=== PATIENT | female | born 1945 | race Caucasian/White ===

== ENCOUNTER 2022-01-01 15:15 | Inpatient (IN) | payer MEDICARE, SELFPAY ==
[2022-01-01 15:37] VITALS: BP 90/59; PULSE 60; RESP 16; TEMP 36.4; O2SAT 98; BMI 24.8
[2022-01-01] MEDS: oxyCODONE 5 MG Tablet PO (17:01)
[2022-01-01 21:40] VITALS: BP 128/49; PULSE 62; RESP 18; TEMP 36.8; O2SAT 96
[2022-01-01] MEDS: Enoxaparin 30 MG/0.3 ML Syringe SC (21:40)
[2022-01-01] MEDS: Acetaminophen 500 MG Tablet 1000 MG PO (21:40)
[2022-01-01] MEDS: Senna/Docusate Sodium 1 Tablet 2 TABLET PO (21:40)
[2022-01-01 21:51] VITALS: PULSE 65; O2SAT 96
[2022-01-01 23:04] VITALS: BP 117/46; PULSE 67; RESP 19; TEMP 37.2; O2SAT 94
[2022-01-02 05:04] VITALS: BP 125/52; PULSE 57; RESP 17; TEMP 37.2; O2SAT 97
[2022-01-02] MEDS: oxyCODONE 5 MG Tablet PO ×4 (05:08→21:13)
[2022-01-02] MEDS: Acetaminophen 500 MG Tablet 1000 MG PO ×3 (05:08→21:13)
[2022-01-02] MEDS: Levothyroxine 50 MCG Tablet PO (05:08)
[2022-01-02 05:38] LABS: Absolute Lymphocyte Count 1.42 X10^3/uL (0.83-4.51); Absolute Neutrophil Count 2.8 X10^3/uL (2.0-7.7); Basophil# 0.03 X10^3/uL; Basophil% 0.6 % (0-1); Eosinophil# 0.18 X10^3/uL; Eosinophils% 3.6 % (0-5); Hematocrit 36.9 % (37-47); Hemoglobin 12.1 g/dL (12.0-15.0); Lymphocyte # 1.42 X10^3/ul (0.83-4.51); Lymphocyte % 28.5 % (19-41); Mean Corp Hgb Conc 32.8 g/dL (32-36); Mean Corpuscular Hgb 31.9 pg (27.0-32.0); Mean Corpuscular Volume 97.4 fL (81-99); Mean Platelet Vol. 8.4 fl (6.2-12.0); Monocyte# 0.54 X10^3/uL; Monocyte% 10.8 % (0-10); NRBC Flagged by Analyzer 0 % (0-5); Neutrophil # 2.79 X10^3/uL (2.7-7.7); Neutrophil % 56.1 % (47-70); Platelet Count 398 K/mm3 (150-450); RBC Distribution Width CV 13.1 % (11.6-14.6); RBC Distribution Width SD 46.9 fl (35.1-43.9); Red Blood Count 3.79 M/mm3 (4.2-5.4)
[2022-01-02 06:20] LABS: ALB/GLOB Ratio 0.8 RATIO (0.9-2.4); AST(SGOT) 10 U/L (15-37); Alanine Aminotransfer ALT/SGPT 8 U/L (13-56); Albumin, Serum 2.6 g/dL (3.2-5.0); Alkaline Phosphatase 67 U/L (45-117); Anion Gap 6 (5-15); BUN 18 mg/dL (7-18); BUN/Creat Ratio 24.3 RATIO (10-20); Calcium,Total 8.7 mg/dL (8.5-10.1); Chloride 107 mmol/L (98-107); Creatinine, Serum 0.74 mg/dL (0.55-1.02); EST Glomerular Filtration Rate 81 mL/min (>60); Est Glom Filt Rate - Afr Amer 98 mL/min (>60); Estimated Creatinine Clearance 37.85 ml/min; Globulin 3.4 g/dL (2.2-4.2); Glucose 100 mg/dL (74-106); Phosphorus 3.2 mg/dL (2.5-4.9); Potassium 3.5 mmol/L (3.5-5.1); Sodium Level 143 mmol/L (136-145)
[2022-01-02 07:22] VITALS: BP 125/52; PULSE 57; RESP 17; TEMP 37.2; O2SAT 96
[2022-01-02] MEDS: Polyethylene Glycol 3350 17 GM PACKET PO (08:08)
[2022-01-02] MEDS: Senna/Docusate Sodium 1 Tablet 2 TABLET PO ×2 (08:09→21:13)
[2022-01-02] MEDS: Enoxaparin 30 MG/0.3 ML Syringe SC ×2 (08:10→21:13)
[2022-01-02 08:13] LABS: Vitamin D,25 Hydroxy 36.5 ng/mL
--- NOTE | 2022-01-02 08:37 | PCM.HP.STD ---
HPI - General General Date of Admission: 01/01/22 Date of Service: 01/02/22 Chief Complaint: Debility due to fall on 12/29/21 resulting in a burst fracture of L3. 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 She denied hitting her head. She fell back and landed on a step which broke her fall. She was transferred to [facility] in [place] for orthopedic evaluation of a L3 burst fracture with 6 mm of retropulsion with spinal stenosis and a probable epidural hematoma. While at [facility] she was seen in consult by Dr. Tsai from neurosurgery to determine if she could have an MRI and if the EDITORIAL PROJECT MANAGER shunt would need to be reprogrammed after the MRI. He determined the shunt was a Certas valve and she could have an MRI and the device would not need to be reprogrammed following the MRI. MRI of the lumbosacral spine showed moderate to severe comminuted burst fracture involving L3 with significant retropulsion, asymmetrically greater on the left, including slight extension into the left pedicle. There was associated moderate to severe spinal stenosis with mass-effect on the thecal sac and nerve roots at L2-L4. On 12/26 she was taken to the OR for L2-L4 posterior spinal fusion with L2-L4 laminectomy and L2, L3 and L4 vertebroplasty. Postoperatively she was prescribed a brace when out of bed and as needed for comfort. Hans was transferred to the acute inpt unit at [facility] on 12/14/21 for 3 hours of therapy daily to restore function/independence prior to returning home. Afebrile S vital signs are stable. Blood pressure is well controlled. Heart rate is ranged from 57-67. Maintaining appropriate oxygen saturation on RA Discussed with nursing - no problems that need addressed Reviewed the PT/OT notes Medication list reviewed. All paperwork sent to us from the previous hospital was reviewed. All lab from this AM was personally reviewed. The white blood cell count, hemoglobin and platelets are all within normal limits. CMP is remarkable for an elevated BUN/creatinine ratio at 24.3. Vitamin D level is normal at 36.5. Hans is complaining that her pain control could be better. She had a hard time sleeping last night due to pain.. [facility] Medical History (Updated 01/02/22 @ 19:[address] Drea Rojas DO) Fall Hypothyroidism Home Medications acetaminophen 500 mg tablet 1,000 mg PO Q8 pain 01/01/22 [History Last Taken Unknown] calcium carbonate 600 mg calcium (1,500 mg) tablet 600 mg PO DAILY Check with primary doctor 01/01/22 [History Last Taken Unknown] enoxaparin 30 mg/0.3 mL subcutaneous solution 30 mg subcut Q12H PRN Check with primary doctor 01/01/22 [History Last Taken Unknown] levothyroxine 50 mcg tablet (Synthroid) 50 mcg PO DAILY hypothyroid 01/01/22 [History Last Taken Unknown] ondansetron HCl 4 mg tablet 4 mg PO Q8H PRN nausea/vomiting 01/01/22 [History Last Taken Unknown] oxycodone 5 mg tablet 5 mg PO Q6H PRN pain 01/01/22 [History Last Taken Unknown] polyethylene glycol 3350 17 gram oral powder packet (Miralax) 17 g PO DAILY bowel mobility 01/01/22 [History Last Taken Unknown] Allergy/AdvReac Type Severity Reaction Status Date / Time No Known Allergies Allergy Verified 01/01/22 15:43 Family History unable to obtain Surgical History (Updated 01/02/22 @ 18:[address] Drea Rojas DO) History of lumbar fusion EDITORIAL PROJECT MANAGER (ventriculoperitoneal) shunt status Social History household members: spouse Smoking Status: Never smoker ROS Constitutional Constitutional: Denies anorexia, change in weight, chills, fatigue, fever(s), night sweats or weakness Eyes Eyes: Denies blurry vision, change in vision, eye pain or loss of vision ENT HEENT: Reports other Details: She is complaining of dry mouth ; Denies abnormal hearing, dysphagia, headache(s), hearing loss, nasal congestion or sore throat Cardiovascular Cardiovascular: Denies chest pain, dyspnea on exertion, edema, lightheadedness, orthopnea, palpitations, paroxysmal nocturnal dyspnea or syncope Respiratory/Chest Respiratory/Chest: Denies cough, dyspnea, shortness of breath at rest, shortness of breath with exertion or wheezing Gastrointestinal Gastrointestinal: Reports constipation and other Details: She is only able to urinate a small amount and bladder scans show she is retaining urine ; Denies abdominal pain, diarrhea, dyspepsia, hematemesis, hematochezia, nausea or vomiting Genitourinary Genitourinary: Reports urinary hesitancy and other Details: urine retention ; Denies dysuria, hematuria, nocturia, urinary frequency, urinary incontinence or urinary urgency Musculoskeletal Musculoskeletal: Reports other Details: back pain localized to the low back. She denies pain or numbness in the buttocks ; Denies back pain, joint pain, joint swelling, muscle cramps, neck pain, numbness, radiating pain into limb or tingling Neurologic Neurologic: Denies confusion, disequilibrium, dizziness, focal weakness, frequent falls, headache(s), paresthesias, seizures, tingling, tremor(s) or vertigo Psychiatric Psychiatric: Denies anxiety, depression, homicidal ideation or suicidal ideation Endocrine Endocrinology: Denies change in body appearance, polydipsia or polyuria Hematologic/Lymphatic Hematologic/Lymphatic: Denies easy bleeding, easy bruising or lymphadenopathy Allergic/Immunologic Allergic/Immunologic: Denies rhinitis, eczemia or asthma Vital Signs Vital Signs Vital Signs: 01/01/22 15:37 01/01/22 21:40 01/01/22 21:44 Temperature 97.5 F L 98.3 F Temperature Source Temporal Oral Pulse Rate 60 62 Pulse Strength Normal (2+) Respiratory Rate 16 18 Respiratory Effort Respiratory Depth Respiratory Pattern Blood Pressure 90/59 L 128/49 H Blood Pressure Mean 69 75 Blood Pressure Source Monitor Monitor Blood Pressure Position Sitting Semi-Fowlers Blood Pressure Location Right Arm Right Arm Pulse Ox 98 96 Oxygen Delivery Method Room Air Room Air 01/01/22 21:51 01/01/22 23:04 01/02/22 05:04 Temperature 99.0 F 98.9 F Temperature Source Temporal Temporal Pulse Rate 65 67 57 L Pulse Strength Respiratory Rate 19 H 17 Respiratory Effort Normal Non-Labored Respiratory Depth Normal Respiratory Pattern Normal Blood Pressure 117/46 L 125/52 H Blood Pressure Mean 69 76 Blood Pressure Source Blood Pressure Position Blood Pressure Location Pulse Ox 96 94 97 Oxygen Delivery Method Room Air Room Air Room Air 01/02/22 07:22 Temperature 98.9 F Temperature Source Temporal Pulse Rate 57 L Pulse Strength Respiratory Rate 17 Respiratory Effort Respiratory Depth Respiratory Pattern Blood Pressure 125/52 H Blood Pressure Mean 76 Blood Pressure Source Monitor Blood Pressure Position Semi-Fowlers Blood Pressure Location Left Arm Pulse Ox 96 Oxygen Delivery Method Room Air Weight Weight: 136 lb Body Mass Index (BMI) 24.8 Physical Exam Const alert, oriented x3, healthy appearing and well nourished Constitutional Narrative: Appears to be in pain and is a little restless in bed and having trouble getting comfortable. She is pleasant and making good eye contact when she speaks with me General Appearance: cooperative, well kempt and well developed HEENT normocephalic and head/scalp atraumatic HEENT Narrative: Mucous membranes are dry. Face and Sinus: normal facial exam Eyes PERRL, EOMs intact bilaterally, conjunctivae normal, no scleral icterus and normal visual may by confrontation Neck no lymphadenopathy, supple, no JVD and no carotid bruits Chest inspection of chest normal Resp normal respiratory effort, normal air movement, no use of accessory muscles and clear to auscultation bilaterally Resp Narrative: No conversational dyspnea and she is not tachypneic. Effort and Inspection: able to speak in complete sentences and symmetric chest movement Cardio regular rate, regular rhythm, S1 normal heart sound, S2 normal heart sound, no murmurs, no rub and no gallops Cardio Narrative: No ectopy GI normal to inspection, nondistended, normoactive bowel sounds, soft to palpation and non-distended GI Narrative: She was tender in the suprapubic area because the bladder is distended and she needs to be straight cath'd Back/Spine Back/Spine Narrative: The bandage is present over the incision and the bandage is dry without drainage. Will examine with the next dressing change. Extremity no calf tenderness and no pedal edema Extremity Narrative: Able to lift both legs off the bed and hold them off the bed with no drift for a count of 5. no foot drop. Good dorsiflexion and plantar flexion strength in both feet. Normal capillary refill. No loss of sensation to either LE. Peripheral Pulses: Yes pulses 2+ throughout Skin General Skin Exam: no breakdown Rashes: no rashes Wound Narrative: Incision in the low back is intact. Will examine with the bandage change in the AM. Hair: normal Neuro oriented x3, CN's II-XII intact bilaterally, moves all extremities, no focal motor deficits and no sensory deficits noted Psych mental status grossly normal, thought process normal, cooperative, affect normal, speech normal and activity/motor behavior normal Appearance: grossly normal, appropriate and well kempt Attitude: calm Activity / Motor Behavior: appropriate eye contact Mood & Affect: euthymic mood Results Lab / Micro Data Result Diagrams: 01/02/22 05:29 01/02/22 05:29 Labs: Laboratory Results - last 24 hr 01/02/22 05:29: WBC 5.0, RBC 3.79 L, Hgb 12.1, Hct 36.9 L, MCV 97.4, MCH 31.9, MCHC 32.8, RDW Std Deviation 46.9 H, RDW Coeff of Yayo 13.1, Plt Count 398, MPV 8.4, Immature Gran % (Auto) 0.400, Neut % (Auto) 56.1, Lymph % (Auto) 28.5, Terrell % (Auto) 10.8 H, Eos % (Auto) 3.6, Baso % (Auto) 0.6, Absolute Neuts (auto) 2.8, Absolute Lymphs (auto) 1.42, Nucleated RBC % 0 01/02/22 05:29: Sodium 143, Potassium 3.5, Chloride 107, Carbon Dioxide 30.0, Anion Gap 6, BUN 18, Creatinine 0.74, Estim Creat Clear Calc 37.85, Est GFR (MDRD) Af Amer 98, Est GFR (MDRD) Non-Af 81, BUN/Creatinine Ratio 24.3 H, Glucose 100, Calcium 8.7, Phosphorus 3.2, Magnesium 2.0, Total Bilirubin 0.50, AST 10 L, ALT 8 L, Alkaline Phosphatase 67, Total Protein 6.0 L, Albumin 2.6 L, Globulin 3.4, Albumin/Globulin Ratio 0.8 L 01/02/22 05:29: Vitamin D 25-Hydroxy 36.5 Assessment & Plan Assessment/Plan (1) Physical debility: (2) Fall: (3) Burst fracture of lumbar vertebra: (4) Central stenosis of spinal canal: (5) Spinal epidural hematoma: (6) EDITORIAL PROJECT MANAGER (ventriculoperitoneal) shunt status: (7) Urine retention: (8) Hypothyroidism: PLAN: Plan PLAN PT for gait stability OT for ADL's Analgesics as needed - change the Oxycodone to 5-10 mg Q4H PRN pain. The pain is localized to the low back/surgery site and she has no radicular pain at this time. Bowel protocol Fall precautions Assess for Anxiety/Depression GI prophylaxis - not necessary at this time. she has no epigastric pain or nausea and she has no hx of GERD or PUD. DVT prophylaxis with enoxaparin 30 mg SQ every 12 hours Follow up with orthopedic surgery and Dr. Knight following DC from Rehab AM lab including CMP, CBC, Mag and Phos-personally reviewed Check TSH and T4 in the a.m. Add vitamin D supplement to her current drug regimen as the vitamin D level is low normal but we are heading into winter. Will request Dr. Knight's records to see if the patient has had a bone mineral density test in the past. No bending, lifting or twisting. Biotene spray PRN dry mouth. Encouraged her to increase her fluid intake. Bladder scan Q 6 hours and straight cath if > 200 cc. UA now. Unit Exclusion This patient is an acute care inpatient being housed in the excluded unit because of capacity issues related to the disaster or emergency.: Yes Charges/Coding Visit Charges Inpatient E&M: 79874 Init Hosp L2
[2022-01-02] MEDS: Calcium (Elemental) 500 MG Tablet PO (09:15)
[2022-01-02 19:21] LABS: Mucous, Urine 0 SEEN /hpf (<or=2+); Red Blood Cells-Urine 0 SEEN /hpf (0-5); White Blood Cells 0 SEEN /hpf (0-5)
[2022-01-02 19:25] LABS: Color, Urine Yellow (Yellow); Glucose, Dipstick Normal (Normal); Ketone-Dipstick Negative (Negative); Leukocyte Esterase-Dipstick Negative /ul (Negative); Nitrite-Dipstick Negative (Negative); Occult Blood-Urine Negative /ul (Negative); Protein-Dipstick Negative (Negative); Specific Gravity, Urine 1.015 (1.002-1.030); Urine Bilirubin Dipstick Negative (Negative); Urine Clarity Clear (Clear); Urine Urobilinogen Normal (Normal)
--- NOTE | 2022-01-02 19:25 | REHABEVAL_ITS ---
Admission Information Primary Diagnosis:: Physical debility/pain secondary to recent fall resulting in a burst fracture of L3 with retropulsed fragments and an epidural hematoma causing moderate to severe spinal canal stenosis. She is status post laminectomy and fusion from L2-L4. Status Changes from Prescreening?: No changes Identified Actual Problem List:: Falls, Skin Intergrity, Pain, ALteration in Cmfrt, Bladder Incontinence (She is having urine retention), Bowel, Constipation, Alteration in Sleep, Mobility Impaired, Self Care Deficit, Fluid Change-Dehydration and Alteration-Leisure Activ. Potential Problem List:: DVT, Bleeding, Infection, UTI, Aspiration, Falls, Skin Integrity and Depression Risk of Complications DVT: LMWH and ROBBIE Hose Bleeding: Monitor Lab Values, Nursing to Teach Precautions for anti-coagulation therapy., Wound, if applicable, to be assessed every shift. and Stroke patients assessed for lethargy or change in status. Infection: Clinical Staff to Monitor for S/S of infection: and S/S of infection include fever, redness, warmth, etc. Urinary Tract Infection: Monitor for frequency, burning, discomfort, or incontinence. and Nursing will obtain urine sample for urinalysis and C&S when ordered. Aspiration: Clinical staff will monitor for coughing, drooling, congestion., Speech will evaluate swallowing and dsyphasia. and Nursing will monitor patient swallowing during meals. Falls: Patient will be evaluated for Fall Precautions and Patient will be placed on Fall Precautions as indicated per protocol. Skin Breakdown: Nursing will assess skin daily using assessment tool. and Nursing will place on Skin Breakdown Precautions as indicated. Pain: Clinical staff will assess patient's pain level per protocol., Medications will be given, if needed, and the pain level reassessed. and Other methods: Massage, distraction, decrease stimulus, etc. used PRN. Plan of Care Patient requires physician specializing in physical medicine and rehab oversight to provide close medical supervision of rehab issues including: Pain Management, Sleep Problems, Bowel and Bladder, Medical and co-morbidity Management, DVT prophylaxis, Rehabilitation Leadership and Coordination of treatment team Patient needs Physical Therapy: For a minimum of 1 hour and At least 5 out of 7 days Patient needs Physical Therapy to improve:: Mobility, Strengthening, Transfers, Stretching, ROM, Endurance, Stairs, Gait and Balance Patient needs Occupational Therapy: For a minimum of 1 hour and At least 5 out of 7 days Patient needs Occupational Therapy to improve ADL's incl.: Eating, Grooming, Bathing, Dressing, Toileting, Toilet transfers, Community Reintegration, Higher functioning activities, Household tasks, Adaptive Equipment, Splinting and Other activities as determined Patient requires 24/7 Rehabilitation Nursing for: Pain Issues, Identifying and preventing risk factors, Monitoring and reporting current medical conditions, Assisting with ambulation, transfer, and all ADL's, Teaching patients about disease process and medications, Family teaching, Providing safe environment, Bowel and Bladder Issues, Skin integrity and Medication Management Patient needs Solid Waste Manager/ Case Management for: Discharge Planning, Arranging Home Equipment or Services and Family Interventions Patient needs Dietary and Nutrition Services for: Adequate Nutrition, Nutritional Supplements and Nutritional Education Goals Patient will remain: free from falls and or injury at time of discharge. Patient will perform bed mobility at: MOD I level of assist. Patient will complete transfers from bed to chair at: MOD I level of assist. Patient will ambulate: - (300 feet with least restrictive assistive device for safe return to the household/community.) Patient will complete upper body dressing at: MOD I level of assist. Patient will complete lower body dressing at: MOD I level of assist. (With appropriate assistive device) Patient will complete toileting at: MOD I level of assist. Patient will perform bathing at: - (Will demonstrate transfer on/off shower chair with use of grab bar and bathing tasks at a supervised level) Patient will complete grooming at: MOD I level of assist. Patient will complete home management skills at: MOD I level of assist. Patient will achieve: - (1 step at mod I with least restrictive device to safely enter her home.) Patient will have pain level of: of 3 or less Patient's skin will: remain intact Patient will receive: adequate nutrition. Discharge Planning Estimated Length of stay (days): 14 Anticipated D/C Destination: Home Was Preadmission Assessment Accurate?: Yes
[2022-01-02 20:17] LABS: Bacteria 1+ /hpf (None Seen); Squamous Epithelial Cells - UA 0-5 SEEN /hpf (5-10)
[2022-01-02 21:20] VITALS: BP 122/68; PULSE 70; RESP 17; TEMP 36.5; O2SAT 94
[2022-01-03] MEDS: oxyCODONE 5 MG Tablet PO ×4 (02:34→20:16)
[2022-01-03] MEDS: Acetaminophen 500 MG Tablet 1000 MG PO ×3 (05:22→21:44)
[2022-01-03] MEDS: Levothyroxine 50 MCG Tablet PO (05:23)
[2022-01-03 05:58] LABS: Thyroid Stim Hormone (TSH) 4.61 uIU/mL (0.358-3.74)
[2022-01-03 07:53] VITALS: BP 106/50; PULSE 62; RESP 18; TEMP 36.4; O2SAT 96
[2022-01-03] MEDS: Calcium (Elemental) 500 MG Tablet PO (07:56)
[2022-01-03] MEDS: Enoxaparin 30 MG/0.3 ML Syringe SC ×2 (07:56→21:45)
[2022-01-03] MEDS: Cholecalciferol (VIT D3) 25 MCG TABLET (1,000 UNITS) PO (07:57)
[2022-01-03] MEDS: Polyethylene Glycol 3350 17 GM PACKET PO (07:57)
[2022-01-03] MEDS: Senna/Docusate Sodium 1 Tablet 2 TABLET PO ×2 (07:57→21:45)
[2022-01-03] MEDS: Ondansetron ODT 4 MG Tablet PO (09:05)
--- NOTE | 2022-01-03 09:43 | NURSING ---
pt had a large amount of emesis while sitting in toilet.
[2022-01-03 09:55] VITALS: O2SAT 96
--- NOTE | 2022-01-03 10:58 | NURSING ---
Records request faxed to [facility] medical records.
--- NOTE | 2022-01-03 14:44 | NURSING ---
Contacted Dr. Knight's office requesting medical records fax number to request needed records. Waiting for call back.
--- NOTE | 2022-01-03 15:49 | NURSING ---
Received requested information from Dr. Knight's office.
--- NOTE | 2022-01-03 16:51 | PCM.PROGNOTE ---
Subjective Subjective Afebrile VSS Maintaining appropriate oxygen saturation on RA Oral intake - she had nausea and an emesis after breakfast.......she had 10 mg of Oxycodone this morning with breakfast. She received Zofran and the symptoms resolved. She ate 75 to 100% of her lunch. Bladder scan this month morning when she was unable to void was 424 cc and she was straight cathed for 480 mL. Discussed with nursing - no problems that need addressed Reviewed the PT/OT notes Medication list reviewed. She tells me that she slept better last night with the 10 mg of Oxycodone at HS. Denies headache, chest pain, shortness of breath, cough, dysuria, abdominal pain, lightheadedness. She was able to do all her therapy today and she feels tired. She has no nausea when she gets 5 mg of Oxycodone. UA from yesterday was personally reviewed and the patient had 0 WBCs and 0 RBCs on the UA. Urine retention is most likely neurogenic Objective Data Objective Data Vital Signs: Vital Signs Temp Pulse Resp BP Pulse Ox O2 Del Method 97.6 F L 62 18 106/50 L 96 Room Air 01/03/22 07:53 01/03/22 07:53 01/03/22 07:53 01/03/22 07:53 01/03/22 09:55 01/03/22 09:55 Oxygen Delivery Method Room Air Weight: 136 lb 0.015 oz Body Mass Index (BMI) 24.8 Intake & Output: Intake and Output for Last 24 Hours 01/01/22 01/02/22 01/03/22 23:59 23:59 23:59 Intake Total 660 / 660 Output Total 1200 / 1200 900 / 900 485 / 485 Balance -1200 / -1200 -240 / -240 -485 / -485 Lab / Micro Data Result Diagrams: 01/02/22 05:29 01/02/22 05:29 Labs: Laboratory Results - last 24 hr 01/02/22 05:29: TSH 4.61 H 01/02/22 19:00: Urine Color Yellow, Urine Clarity Clear, Urine pH 7.0, Ur Specific Hudson 1.015, Urine Protein Negative, Urine Glucose (UA) Normal, Urine Ketones Negative, Urine Occult Blood Negative, Urine Nitrite Negative, Urine Bilirubin Negative, Urine Urobilinogen Normal, Ur Leukocyte Esterase Negative, Urine RBC 0 SEEN, Urine WBC 0 SEEN, Ur Squamous Epith Cells 0-5 SEEN, Urine Bacteria 1+, Urine Mucus 0 SEEN Physical Exam Const alert, oriented x3 and no apparent distress Constitutional Narrative: She was napping when I entered her room. She aroused easily and she does not appear to be in any distress. She has good color in her face this afternoon. General Appearance: cooperative Resp normal respiratory effort and clear to auscultation bilaterally Cardio regular rate, regular rhythm, no murmurs and no gallops GI normal to inspection, nondistended, normoactive bowel sounds, soft to palpation and non-tender GI Narrative: No guarding with palpation. Extremity no calf tenderness General Extremity: Negative for edema Skin General Skin Exam: no breakdown Rashes: no rashes Assessment & Plan Assessment/Plan (1) Physical debility: (2) Fall: (3) Burst fracture of lumbar vertebra: (4) Central stenosis of spinal canal: (5) S/P laminectomy: (6) History of lumbar fusion: (7) Urine retention: (8) Back pain: PLAN: Plan 1. change the dosing of the Oxycodone to 10 mg at HS and 5 mg Q4H PRN pain > 3 2. Add Miacalcin to help with pain due to a vertebral fracture. 3. Continue therapy 4. If she continues to have urine retention when we get closer to the time of DC will need to teach her how to straight cath. 5. Encouraged her to increase her fluid intake and ordered accurate I&O. Charges/Coding Visit Charges Inpatient E&M: 13237 Subs Hosp L2
[2022-01-03 18:59] VITALS: BP 102/48; PULSE 57; RESP 18; TEMP 36.6; O2SAT 95
[2022-01-03] MEDS: Magnesium Hydroxide 30 ML UDC PO (20:16)
--- NOTE | 2022-01-03 22:59 | NURSING ---
Pt refused straight cath at this time. Pt denies any pressure or discomfort. Will continue to monitor. RN aware.
[2022-01-04] MEDS: oxyCODONE 5 MG Tablet PO ×3 (00:30→22:03)
[2022-01-04] MEDS: Levothyroxine 50 MCG Tablet PO (05:58)
[2022-01-04] MEDS: Acetaminophen 500 MG Tablet 1000 MG PO ×3 (05:58→21:58)
[2022-01-04] MEDS: Calcium (Elemental) 500 MG Tablet PO (07:59)
[2022-01-04 08:08] VITALS: BP 121/70; PULSE 63; RESP 16; TEMP 36.6; O2SAT 96
[2022-01-04] MEDS: Cholecalciferol (VIT D3) 25 MCG TABLET (1,000 UNITS) PO (09:26)
[2022-01-04] MEDS: Enoxaparin 30 MG/0.3 ML Syringe SC ×2 (09:27→21:57)
[2022-01-04] MEDS: Senna/Docusate Sodium 1 Tablet 2 TABLET PO ×2 (09:28→22:01)
[2022-01-04 22:00] VITALS: BP 115/49; PULSE 60; RESP 18; TEMP 36.6; O2SAT 98
[2022-01-05] MEDS: Acetaminophen 500 MG Tablet 1000 MG PO ×3 (05:10→21:41)
[2022-01-05] MEDS: Levothyroxine 50 MCG Tablet PO (05:10)
[2022-01-05] MEDS: oxyCODONE 5 MG Tablet PO ×4 (06:31→21:41)
[2022-01-05 07:30] VITALS: O2SAT 99
[2022-01-05] MEDS: Calcium (Elemental) 500 MG Tablet PO (07:57)
[2022-01-05 10:00] VITALS: BP 107/42; PULSE 61; RESP 16; TEMP 36.4; O2SAT 94
[2022-01-05] MEDS: Enoxaparin 30 MG/0.3 ML Syringe SC ×2 (10:36→21:41)
[2022-01-05] MEDS: Cholecalciferol (VIT D3) 25 MCG TABLET (1,000 UNITS) PO (10:37)
[2022-01-05] MEDS: Senna/Docusate Sodium 1 Tablet 2 TABLET PO ×2 (10:37→21:41)
[2022-01-05] MEDS: Polyethylene Glycol 3350 17 GM PACKET PO (10:37)
[2022-01-05 19:49] VITALS: BP 123/64; PULSE 67; RESP 18; TEMP 36.7; O2SAT 98
[2022-01-06] MEDS: Levothyroxine 50 MCG Tablet PO (05:25)
[2022-01-06] MEDS: Acetaminophen 500 MG Tablet 1000 MG PO ×3 (05:26→21:08)
[2022-01-06] MEDS: oxyCODONE 5 MG Tablet PO ×3 (05:26→18:37)
[2022-01-06 07:14] VITALS: BP 117/49; PULSE 56; RESP 16; TEMP 36.5; O2SAT 96
[2022-01-06 07:21] VITALS: O2SAT 90
[2022-01-06] MEDS: Polyethylene Glycol 3350 17 GM PACKET PO (07:44)
[2022-01-06] MEDS: Senna/Docusate Sodium 1 Tablet 2 TABLET PO (07:44)
[2022-01-06] MEDS: Enoxaparin 30 MG/0.3 ML Syringe SC ×2 (07:44→21:08)
[2022-01-06] MEDS: Calcium (Elemental) 500 MG Tablet PO (07:45)
[2022-01-06] MEDS: Cholecalciferol (VIT D3) 25 MCG TABLET (1,000 UNITS) PO (07:45)
--- NOTE | 2022-01-06 09:29 | PCM.PROGNOTE ---
Subjective Subjective Becky was seen on team rounds today. Afebrile VSS Maintaining appropriate oxygen saturation on RA Oral intake -I do not think that the oral intake is being accurately recorded. She has had good urine output. She is still needing to be straight cath'd. She is constipated and has not had a BM since 01/04. Discussed with nursing - no problems that need addressed Reviewed the PT/OT notes Medication list reviewed. She has been taking 10 mg of Oxycodone 3-4 times a day. she has not had any nausea since Thursday AM with the 10 mg dose. Becky denies headache, chest pain, shortness of breath, cough, sore throat, nausea, vomiting, abdominal pain, calf pain and lightheadedness. She is frustrated that she feels like she has to urinate and when she goes to the bathroom she cannot urinate. We are continuing to straight cath. Prior to this she had no urge to go. UA on 01/02 had no WBC's. She tells me that her pain is adequately controlled. She slept OK last night.....woke up a few times last night to try and go to the BR. Objective Data Objective Data Vital Signs: Vital Signs Temp Pulse Resp BP Pulse Ox O2 Del Method 97.7 F L 56 L 16 117/49 L 90 Room Air 01/06/22 07:14 01/06/22 07:14 01/06/22 07:14 01/06/22 07:14 01/06/22 07:21 01/06/22 07:21 Oxygen Delivery Method Room Air Weight: 136 lb 0.015 oz Body Mass Index (BMI) 24.8 Intake & Output: Intake and Output for Last 24 Hours 01/04/22 01/05/22 01/06/22 23:59 23:59 23:59 Intake Total 720 / 720 520 / 520 Output Total 1210 / 1860 1250 / 1250 300 / 300 Balance -490 / -1140 -730 / -730 -300 / -300 Lab / Micro Data Result Diagrams: 01/02/22 05:29 01/02/22 05:29 Physical Exam Const alert and oriented x3 Constitutional Narrative: Seems a little down today and is fearfula about not being able to urinate when she leaves rehab. she is tired of being poked. General Appearance: cooperative HEENT moist oral mucous membranes Resp normal respiratory effort, normal air movement and clear to auscultation bilaterally Cardio regular rate, regular rhythm, no murmurs and no gallops GI normal to inspection, nondistended, normoactive bowel sounds, soft to palpation and non-tender GI Narrative: Good BS's. No guarding with palpation. Extremity no calf tenderness General Extremity: Negative for edema Skin Wound Narrative: The Lumbar incision is intact with no dehiscence. There is no shun-incisional erythema and no DC. Assessment & Plan Assessment/Plan (1) Physical debility: (2) Fall: (3) Burst fracture of lumbar vertebra: (4) Central stenosis of spinal canal: (5) Spinal epidural hematoma: (6) S/P laminectomy: (7) History of lumbar fusion: (8) Urine retention: PLAN: This is most likely neurogenic however, she has been constipated and will get a KUB to rule out obstipation as a contributor to the retention. PLAN: Plan 1. Continue therapy. 2. Constipation is likely multifactorial.......due to immobility, narcotics and possibly this is also neurogenic in nature. She is taking both senna and Miralax daily. Charges/Coding Visit Charges Inpatient E&M: 94447 Subs Hosp L2
--- NOTE | 2022-01-06 09:48 | RAD_ITS ---
STUDY: X-RAY - ABDOMEN/PELVIS REASON FOR EXAM: Female, 76 years old. Constipation/abd pain TECHNIQUE: Single AP view of the abdomen / pelvis. COMPARISON: None. FINDINGS: A ventriculoperitoneal shunt tube is seen with the tip in the right lower quadrant. There is an abundance of fecal material throughout the colon. The visualized liver, spleen and kidneys are grossly normal in size and morphology. Normal soft tissue structures. The patient is status post tibiotalar screw and ruddy fixation at the L2-L3 and L3-L4 levels with the bone grafting. Prior vertebroplasty of the L2 vertebrae. RAD/Abdomen Single View IMPRESSION: Large amount of fecal material is seen throughout the colon. Status post fusion at the L2-L3 and L3-L4 levels with bone grafting. Electronically Signed: Jose D Hi MD at 12:30 EDT ,
[2022-01-06 10:44] LABS: Mucous, Urine 0 SEEN /hpf (<or=2+); Squamous Epithelial Cells - UA 0 SEEN /hpf (5-10)
[2022-01-06 10:46] LABS: Color, Urine Yellow (Yellow); Glucose, Dipstick Normal (Normal); Ketone-Dipstick Negative (Negative); Leukocyte Esterase-Dipstick 500 /ul (Negative); Nitrite-Dipstick Positive (Negative); Occult Blood-Urine 50 /ul (Negative); Protein-Dipstick 30 mg/dl (Negative); Specific Gravity, Urine 1.015 (1.002-1.030); Urine Bilirubin Dipstick Negative (Negative); Urine Clarity Turbid (Clear); Urine Urobilinogen Normal (Normal); Urine pH 6.5 (5.0 - 8.0)
[2022-01-06 10:52] LABS: Bacteria 3+ /hpf (None Seen); Red Blood Cells-Urine 0-5 SEEN /hpf (0-5); White Blood Cells >100 SEEN /hpf (0-5)
[2022-01-06] MEDS: Magnesium Hydroxide 30 ML UDC PO (10:59)
[2022-01-06] MEDS: Bisacodyl 5 MG Tablet 10 MG PO (13:06)
--- NOTE | 2022-01-06 13:44 | CASEMGMT ---
Social Work IDT met with patient, and son for Team meeting. Discussed patient's progress in PT/OT/SN. Educated to [employer] insurance with NRD 01/08 and continued stay is not guaranteed with each review. Pts goal is to return home with . However, is present from another hospital unit dealing with his own health issues. SW to ensure and pt are safe to care for each other at DC. Son works night time nanny. SW to order continued therapy or DME needs at DC. Will ReTeam. SW to continue to follow for DC planning. Yvonne Wyatt, ORTHOPEDIC ASSISTANT TECHNICAL SUPPORT SPECIALIST
[2022-01-06] MEDS: Bisacodyl 10 MG Suppository RC (16:28)
[2022-01-06 20:47] VITALS: BP 113/56; PULSE 58; RESP 16; TEMP 37.1; O2SAT 97
[2022-01-07] MEDS: oxyCODONE 5 MG Tablet PO ×3 (00:53→20:03)
[2022-01-07] MEDS: Levothyroxine 50 MCG Tablet PO (07:24)
[2022-01-07] MEDS: Acetaminophen 500 MG Tablet 1000 MG PO ×3 (07:24→21:01)
[2022-01-07] MEDS: Cholecalciferol (VIT D3) 25 MCG TABLET (1,000 UNITS) PO (07:55)
[2022-01-07] MEDS: Calcium (Elemental) 500 MG Tablet PO (07:55)
[2022-01-07] MEDS: Enoxaparin 30 MG/0.3 ML Syringe SC ×2 (07:55→21:01)
[2022-01-07] MEDS: Senna/Docusate Sodium 1 Tablet 2 TABLET PO ×2 (07:58→21:01)
[2022-01-07] MEDS: Polyethylene Glycol 3350 17 GM PACKET PO (07:58)
[2022-01-07 08:00] VITALS: BP 116/42; PULSE 61; RESP 18; TEMP 36.7; O2SAT 98
[2022-01-07 20:02] VITALS: BP 136/47; PULSE 60; RESP 16; TEMP 36.8; O2SAT 94
[2022-01-08] MEDS: oxyCODONE 5 MG Tablet PO ×3 (00:47→20:34)
[2022-01-08] MEDS: Levothyroxine 50 MCG Tablet PO (06:26)
[2022-01-08] MEDS: Acetaminophen 500 MG Tablet 1000 MG PO ×3 (06:26→20:36)
[2022-01-08 07:55] VITALS: BP 115/47; PULSE 58; RESP 16; TEMP 36.8; O2SAT 94
[2022-01-08] MEDS: Cholecalciferol (VIT D3) 25 MCG TABLET (1,000 UNITS) PO (07:55)
[2022-01-08] MEDS: Enoxaparin 30 MG/0.3 ML Syringe SC ×2 (07:55→20:36)
[2022-01-08] MEDS: Calcium (Elemental) 500 MG Tablet PO (07:55)
[2022-01-08] MEDS: Polyethylene Glycol 3350 17 GM PACKET PO (07:56)
[2022-01-08] MEDS: Senna/Docusate Sodium 1 Tablet 2 TABLET PO ×2 (07:56→20:35)
[2022-01-08 09:18] VITALS: O2SAT 95
[2022-01-08 10:00] VITALS: RESP 16; O2SAT 97
--- NOTE | 2022-01-08 14:49 | CHAPLAIN ---
Type of Pastoral Visit _x__ Initial Visit ___ Follow-up Visit ___ On-call Visit ___ General Patient Visit ___ Spiritual Assessment ___ Family Conference ___ Bereavement ___ Rapid Response ___ Code Blue ___ Other (describe below) Pastoral Care Referral From _x__ Patient ___ Family ___ Nurse ___ Physician ___ Principal Research Economist ___ Plastic Extruding Machine Operator ___ Other (describe below) Sacrament/Intervention _x__ Active listening ___ Anointing ___ Advent ___ Bereavement ___ Communion ___ Nancy exploration ___ _x__ Life review _x__ Prayer ___ Reconciliation ___ Sacrament of Sick _x__ Supportive presence ___ Wedding ___ Other (describe below) Pastoral Comments patient states that recovery is coming slowly but admits that it is to be expected; pt talks about her new blended family after being ; pt has support from new and her children; 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
--- NOTE | 2022-01-08 15:03 | CASEMGMT ---
Social Work Insurance requesting further details on discharge plans. SW spoke with IDT. IDT recommending continued stay as pt is still needing assistance managing back brace, toilet hygiene and clothing management, Aga for LE ADLs, and CGA for ambulation. Pt is making progress and will continued stay, pt will continue to benefit. Pt must be independent to return home as son works night time nanny and has own health issues. Will Team Thursday and further details DC plans and setting date. SW to continue to follow. LOLA Leung
--- NOTE | 2022-01-08 15:47 | NURSING ---
Spoke with Maura in Dr. Adebayo Olivo's office (Orthopedics) asking when the sutures to the patient's back can be removed. She will send a message to Dr Olivo and call us with his response.
[2022-01-08 20:02] VITALS: BP 116/56; PULSE 63; RESP 16; TEMP 36.8; O2SAT 98
[2022-01-08 20:07] VITALS: O2SAT 98
--- NOTE | 2022-01-08 22:54 | NURSING ---
Pt c/o feeling pressure to void but unable to, bladder distended. Pt bladder scanned early, showed greater than 1000ml, straight cathed for 1300ml clear, yellow urine. Pt tolerated well, states she feels better now. Pt asking about medication to help with this problem, states that she does not want to straight cath herself, note left for Dr. Rojas to address in am. Will continue to monitor
[2022-01-09] MEDS: Levothyroxine 50 MCG Tablet PO (05:56)
[2022-01-09] MEDS: Acetaminophen 500 MG Tablet 1000 MG PO ×3 (05:56→21:08)
[2022-01-09] MEDS: oxyCODONE 5 MG Tablet PO ×3 (05:58→23:59)
[2022-01-09 08:28] VITALS: BP 123/51; PULSE 61; RESP 16; TEMP 36.7; O2SAT 96
[2022-01-09] MEDS: Senna/Docusate Sodium 1 Tablet 2 TABLET PO ×2 (09:23→21:08)
[2022-01-09] MEDS: Enoxaparin 30 MG/0.3 ML Syringe SC ×2 (09:23→21:08)
[2022-01-09] MEDS: Polyethylene Glycol 3350 17 GM PACKET PO (09:23)
[2022-01-09] MEDS: Calcium (Elemental) 500 MG Tablet PO (09:23)
[2022-01-09] MEDS: Cholecalciferol (VIT D3) 25 MCG TABLET (1,000 UNITS) PO (09:23)
[2022-01-09] MEDS: Magnesium Hydroxide 30 ML UDC PO (10:00)
--- NOTE | 2022-01-09 10:23 | PCM.PROGNOTE ---
Subjective Subjective Day 03/22 of cefadroxil for urinary tract infection Afebrile VSS Maintaining appropriate oxygen saturation on RA Oral intake is poor on nursing documentation however this may not be accurate. Her weight is up 4-1/2 ounces since admission to rehab. Discussed with nursing - no problems that need addressed Reviewed the PT/OT notes Still requiring voice cues to be able to do therapy exercises correctly. She is moving at a better pace with the FWW today and seems more alert although still requiring some VC's Medication list reviewed. Oxycodone was changed to 5 mg p.o. every 4 hours as needed pain greater than 4 yesterday for difficulty with memory and retaining what she has learned in therapy from 1 days to the next. Urine culture is + for E. coli and Klebsiella oxytoca. Both bacteria are sensitive to cefazolin, ceftriaxone, Fluoroquinolones, nitrofurantoin and Bactrim. Becky is very frustrated and depressed that she can not urinate. I have explained to her a # of times that this is neurogenic and due to the burst fracture and spinal stenosis. She wants a Medication that will make her urinate and I explained there is no such medication. Becky denies cephalgia, sore throat, cough, shortness of breath, palpitations, chest pain, nausea/vomiting, calf tenderness. She had a BM on the toilet today and was also able to urinate! She denies dysuria today. Objective Data Objective Data Vital Signs: Vital Signs Temp Pulse Resp BP Pulse Ox O2 Del Method 98.0 F 61 16 123/51 H 96 Room Air 01/09/22 08:28 01/09/22 08:28 01/09/22 08:28 01/09/22 08:28 01/09/22 08:28 01/09/22 08:28 Oxygen Delivery Method Room Air Weight: 140 lb 10.479 oz Body Mass Index (BMI) 24.8 Intake & Output: Intake and Output for Last 24 Hours 01/07/22 01/08/22 01/09/22 23:59 23:59 23:59 Intake Total 410 / 410 820 / 820 460 / 460 Output Total 1835 / 1835 2150 / 2150 Balance -1425 / -1425 -1330 / -1330 460 / 460 Lab / Micro Data Result Diagrams: 01/02/22 05:29 01/02/22 05:29 Micro: Microbiology 01/06/22 10:25 Urine, Catheterized Urine Culture - Final Escherichia coli Klebsiella oxytoca Physical Exam Narrative Seems a little more alert today and she is smiling at me again. Still sleeping a lot. Resp normal respiratory effort and clear to auscultation bilaterally Cardio Cardio Narrative: RRR, no gallop, no ectopy GI normal to inspection, nondistended, normoactive bowel sounds, soft to palpation and non-tender GI Narrative: No guarding with palpation Extremity no calf tenderness General Extremity: Negative for edema Skin General Skin Exam: no breakdown Rashes: no rashes Neuro CN's II-XII intact bilaterally and no focal motor deficits Assessment & Plan Assessment/Plan (1) Physical debility: PLAN: Continue therapy.. (2) Burst fracture of lumbar vertebra: (3) Central stenosis of spinal canal: (4) Spinal epidural hematoma: (5) S/P laminectomy: (6) History of lumbar fusion: (7) UTI (urinary tract infection), bacterial: PLAN: Duricef 1 g p.o. today and then start 500 mg p.o. twice daily for total of 7 days. (8) Neurogenic bladder: PLAN: She was able to urinate today for the first time and I hope this is a sign of the nerves working again after recent trauma to the lumbar spine from a Burst fracture related to a fall. will continue to monitor bladder scans every 6-8 hours. PLAN: Plan I suspect the memory difficulties the past few days are multifactorial and are due to medications and the UTI. Will continue to monitor mental status......if she is still needing voice cues Thursday will DC the Oxycodone and consider a trial of Tramadol. Creat clearance is only est at 37 and it is likely the Oxycodone was accumulating in her system and it will take a few days to wash out. Will change the Oxycodone to Q6H PRN today. Charges/Coding Visit Charges Inpatient E&M: 05642 Subs Hosp L2
[2022-01-09 10:50] VITALS: O2SAT 96
[2022-01-09] MEDS: Cefadroxil 500 MG CAPSULE 1000 MG PO (12:46)
[2022-01-09] MEDS: Cefadroxil 500 MG CAPSULE PO (21:09)
[2022-01-09 22:00] VITALS: BP 161/54; PULSE 65; RESP 18; TEMP 37.1; O2SAT 100; O2SAT 98
[2022-01-10] MEDS: Acetaminophen 500 MG Tablet 1000 MG PO ×3 (05:45→22:08)
[2022-01-10] MEDS: Levothyroxine 50 MCG Tablet PO (05:45)
[2022-01-10 07:30] VITALS: BP 133/58; PULSE 64; RESP 16; TEMP 36.7; O2SAT 94
[2022-01-10] MEDS: Cefadroxil 500 MG CAPSULE PO ×2 (07:47→22:09)
[2022-01-10] MEDS: Enoxaparin 30 MG/0.3 ML Syringe SC ×2 (07:47→22:09)
[2022-01-10] MEDS: Calcium (Elemental) 500 MG Tablet PO (07:48)
[2022-01-10] MEDS: Cholecalciferol (VIT D3) 25 MCG TABLET (1,000 UNITS) PO (07:48)
[2022-01-10] MEDS: Senna/Docusate Sodium 1 Tablet 2 TABLET PO (07:48)
[2022-01-10] MEDS: Polyethylene Glycol 3350 17 GM PACKET PO (07:48)
[2022-01-10] MEDS: oxyCODONE 5 MG Tablet PO ×2 (09:52→22:07)
--- NOTE | 2022-01-10 10:06 | NURSING ---
Dr Olivo's office called regarding removal of sutures post-operatively. MD requires AP/lateral lumbar xray at 3 weeks post-operatively prior to suture removal. If patient is still in RU at this time--please send images to [email or web address] with subject line including patient's name, , and Dr Olivo's name. Office will then notify our staff after reviewing images in sutures can be removed.
--- NOTE | 2022-01-10 14:08 | NURSING ---
bladder scanned for >508cc. pt denies any urge to urinate since straight cath this AM. straight cath performed with 15fr kit using aseptic technique. 550cc clear/yellow urine obtained.
[2022-01-10 19:20] VITALS: BP 120/48; PULSE 70; RESP 16; TEMP 36.9; O2SAT 96
--- NOTE | 2022-01-10 22:13 | NURSING ---
PT STRAIGHT CATHED FOR 250 ML URINE VIA STERILE TECHNIQUE. PT TOLERATES PROCEDURE WELL.
[2022-01-11] MEDS: Levothyroxine 50 MCG Tablet PO (06:55)
[2022-01-11] MEDS: oxyCODONE 5 MG Tablet PO ×2 (06:55→21:29)
[2022-01-11] MEDS: Acetaminophen 500 MG Tablet 1000 MG PO ×3 (06:55→21:29)
[2022-01-11 08:00] VITALS: BP 91/45; PULSE 61; RESP 16; TEMP 36.9; O2SAT 95
[2022-01-11] MEDS: Polyethylene Glycol 3350 17 GM PACKET PO (08:35)
[2022-01-11] MEDS: Senna/Docusate Sodium 1 Tablet 2 TABLET PO ×2 (08:35→21:29)
[2022-01-11] MEDS: Cholecalciferol (VIT D3) 25 MCG TABLET (1,000 UNITS) PO (08:35)
[2022-01-11] MEDS: Enoxaparin 30 MG/0.3 ML Syringe SC ×2 (08:35→21:30)
[2022-01-11] MEDS: Cefadroxil 500 MG CAPSULE PO ×2 (08:36→21:29)
[2022-01-11] MEDS: Calcium (Elemental) 500 MG Tablet PO (08:36)
[2022-01-11 20:40] VITALS: O2SAT 98
[2022-01-11 20:49] VITALS: BP 119/53; PULSE 57; RESP 16; TEMP 36.9; O2SAT 98
[2022-01-12] MEDS: oxyCODONE 5 MG Tablet PO ×3 (03:29→20:18)
[2022-01-12] MEDS: Levothyroxine 50 MCG Tablet PO (04:51)
[2022-01-12] MEDS: Acetaminophen 500 MG Tablet 1000 MG PO ×3 (04:51→20:18)
[2022-01-12 07:26] VITALS: BP 143/47; PULSE 66; RESP 18; TEMP 36.2; O2SAT 98
[2022-01-12] MEDS: Polyethylene Glycol 3350 17 GM PACKET PO (08:33)
[2022-01-12] MEDS: Cefadroxil 500 MG CAPSULE PO ×2 (08:33→20:18)
[2022-01-12] MEDS: Enoxaparin 30 MG/0.3 ML Syringe SC ×2 (08:33→20:18)
[2022-01-12] MEDS: Cholecalciferol (VIT D3) 25 MCG TABLET (1,000 UNITS) PO (08:33)
[2022-01-12] MEDS: Calcium (Elemental) 500 MG Tablet PO (08:33)
[2022-01-12] MEDS: Senna/Docusate Sodium 1 Tablet 2 TABLET PO ×2 (08:33→20:18)
--- NOTE | 2022-01-12 10:52 | PCM.PROGNOTE ---
Subjective Subjective Day #4/7 of cefadroxil for urinary tract infection. Afebrile VSS Maintaining appropriate oxygen saturation on RA Oral intake is adequate Discussed with nursing - She has been urinating on her own more. Still requiring straight cath for high residuals. Refuses to try to straight cath herself and tells nursing she will not do it at home. Reviewed the PT/OT notes - Requiring less VC's but on Thursday she was still only able to remember 1/3 spinal precautions. Medication list reviewed. She took Oxycodone only twice yesterday and twice on the . She has had 2 already today. Becky is perseverating on requiring to be catheterized at [place]. She would not feel comfortable having her doing this and she has no daughters. she also admits to having a lot of problems with memory and she has required a lot of VC's with therapy and can not remember her spinal precautions. She is agreeable to seeing ST for an evaluation. She has a PATIENT CASE COORDINATOR shunt for NPH and it may be that the cognitive dysfunction is due to memory loss prior to placement of the shunt. Becky tells me that her pain is much better than it was at admission. She denies chest pain, lightheadedness, palpitations, shortness of breath, nausea/vomiting/abdominal pain, suprapubic pain, dysuria and calf tenderness. Objective Data Objective Data Vital Signs: Vital Signs Temp Pulse Resp BP Pulse Ox O2 Del Method 97.1 F L 66 18 143/47 H 98 Room Air 01/12/22 07:26 01/12/22 07:26 01/12/22 07:26 01/12/22 07:26 01/12/22 07:26 01/12/22 07:26 Oxygen Delivery Method Room Air Weight: 140 lb 10.479 oz Body Mass Index (BMI) 24.8 Intake & Output: Intake and Output for Last 24 Hours 01/10/22 01/11/22 01/12/22 23:59 23:59 23:59 Intake Total 1280 / 1280 1200 / 1200 100 / 100 Output Total 1310 / 1310 300 / 300 830 / 830 Balance -30 / -30 900 / 900 -730 / -730 Lab / Micro Data Result Diagrams: 01/13/22 04:13 01/13/22 04:13 Micro: Microbiology 01/06/22 10:25 Urine, Catheterized Urine Culture - Final Escherichia coli Klebsiella oxytoca Physical Exam Const alert and oriented x3 Constitutional Narrative: she is smiling and pleasant today. she is making good eye contact when she converses with me. General Appearance: cooperative HEENT moist oral mucous membranes Resp clear to auscultation bilaterally Cardio regular rate and regular rhythm GI normal to inspection, nondistended, normoactive bowel sounds and soft to palpation Extremity no calf tenderness General Extremity: Negative for edema Skin General Skin Exam: no breakdown Rashes: no rashes Neuro CN's II-XII intact bilaterally Assessment & Plan Assessment/Plan (1) Physical debility: (2) Fall: (3) Burst fracture of lumbar vertebra: (4) Spinal epidural hematoma: (5) S/P laminectomy: (6) History of lumbar fusion: (7) Urine retention: (8) UTI (urinary tract infection), bacterial: (9) Memory difficulties: PLAN: Plan 1. Continue therapy 2. Explained again to her that there is no medication that is going to increase her ability to drain her bladder but, that it is an excellent sign that she is now able to produce some urine and I am hopeful she will regain full function. We discussed the options for going home if she is still requiring straight cath at DC. #1. straight cath herself or teach her or another family member how to do this. #2. Insert a [place] catheter and have her follow up with Dr. Snow for a voiding trial post DC. 3. Continue cefadroxil for 7 days and recheck a UA. 4. CBC, BMP in the AM. 5. Consult ST to evaluate for cognitive function. Charges/Coding Visit Charges Inpatient E&M: 88055 Subs Hosp L2
[2022-01-12 20:21] VITALS: BP 119/51; PULSE 58; RESP 18; TEMP 36.9; O2SAT 98
[2022-01-12 20:23] VITALS: O2SAT 98
[2022-01-13] MEDS: Levothyroxine 50 MCG Tablet PO (05:39)
[2022-01-13] MEDS: Acetaminophen 500 MG Tablet 1000 MG PO ×3 (05:39→21:19)
[2022-01-13 06:18] LABS: Hematocrit 35.8 % (37-47); Hemoglobin 11.9 g/dL (12.0-15.0); Mean Corp Hgb Conc 33.2 g/dL (32-36); Mean Corpuscular Hgb 33.1 pg (27.0-32.0); Mean Corpuscular Volume 99.4 fL (81-99); Mean Platelet Vol. 8.9 fl (6.2-12.0); Platelet Count 314 K/mm3 (150-450); RBC Distribution Width CV 13.6 % (11.6-14.6); RBC Distribution Width SD 49.8 fl (35.1-43.9)
[2022-01-13 06:30] LABS: Anion Gap 7 (5-15); BUN 17 mg/dL (7-18); BUN/Creat Ratio 26.8 RATIO (10-20); Chloride 109 mmol/L (98-107); Creatinine, Serum 0.63 mg/dL (0.55-1.02); EST Glomerular Filtration Rate 97 mL/min (>60); Est Glom Filt Rate - Afr Amer 117 mL/min (>60); Estimated Creatinine Clearance 37.85 ml/min; Glucose 80 mg/dL (74-106); Potassium 3.9 mmol/L (3.5-5.1); Sodium Level 140 mmol/L (136-145)
[2022-01-13] MEDS: Polyethylene Glycol 3350 17 GM PACKET PO (08:23)
[2022-01-13] MEDS: Enoxaparin 30 MG/0.3 ML Syringe SC ×2 (08:23→21:19)
[2022-01-13] MEDS: Cefadroxil 500 MG CAPSULE PO ×2 (08:23→21:20)
[2022-01-13] MEDS: Calcium (Elemental) 500 MG Tablet PO (08:23)
[2022-01-13] MEDS: Cholecalciferol (VIT D3) 25 MCG TABLET (1,000 UNITS) PO (08:24)
[2022-01-13 08:52] VITALS: BP 109/67; PULSE 60; RESP 16; TEMP 36.7; O2SAT 97
[2022-01-13 09:20] VITALS: PULSE 64; RESP 16
--- NOTE | 2022-01-13 13:46 | CASEMGMT ---
Addendum entered by Yvonne Wyatt 01/16/22 15:37: ST requested to be added to order. Added to order and send order to [facility] - they can accept. Addendum entered by Yvonne Wyatt 01/16/22 13:53: Multiple attempts to follow up with pt on HHC choice but pt had not chosen one. SW spoke with pt as referral needs to be made today. Pt chose [facility]. Referral made to [facility] for PT/OT/SN via [facility]. Original Note: Social Work IDT met with patient and for Team meeting. Discussed patient's progress in PT/OT/ST/SN. Educated to [employer] insurance with NRD 01/15 and continued stay is not guaranteed. Insurance requesting setting DC date. IDT agreeable to setting date at the end of the week. Pt feels ready to DC home. Set DC for 01/17 with HHC PT/OT/SN. After ST eval, will determine need for continued ST. No DME needs. /son to transport at DC. Provided skilled HHC with quality and resource data printed from [facility] Guide. SW to make referral to HHC of choice. Plan: DC home with 01/17, HHC PT/OT/SN. LOLA Leung
--- NOTE | 2022-01-13 15:35 | PCM.PROGNOTE ---
Subjective Subjective Becky was seen on team rounds today. Her was present in the room for rounds. Afebrile VSS Maintaining appropriate oxygen saturation on RA Oral intake is adequate Post void residuals are improving. The highest post void residual yesterday was 297. She was 200 at 0400 and 230 at 1026. she had another urination since then and did not need to be cath'd. Discussed with nursing - no problems that need addressed Reviewed the PT/OT - She is much more alert and able to follow directions since she is taking less pain medication. Mood is improved also. Medication list reviewed. Has not taken any Oxycodone since last night. Becky is smiling today and is in a good mood. She has been able to initiate urination regularly and is not always needing to have straight cath now. She denies dysuria. She denies lightheadedness, nausea/vomiting, constipation/diarrhea, palpitations, chest pain, shortness of breath, calf pain. Objective Data Objective Data Vital Signs: Vital Signs Temp Pulse Resp BP Pulse Ox O2 Del Method 98.1 F 64 16 109/67 97 Room Air 01/13/22 08:52 01/13/22 09:20 01/13/22 09:20 01/13/22 08:52 01/13/22 08:52 01/13/22 08:52 Oxygen Delivery Method Room Air Weight: 140 lb 10.479 oz Body Mass Index (BMI) 24.8 Intake & Output: Intake and Output for Last 24 Hours 01/11/22 01/12/22 01/13/22 23:59 23:59 23:59 Intake Total 1200 / 1200 670 / 670 860 / 860 Output Total 300 / 300 1505 / 1505 750 / 750 Balance 900 / 900 -835 / -835 110 / 110 Lab / Micro Data Result Diagrams: 01/13/22 04:13 01/13/22 04:13 Labs: Laboratory Results - last 24 hr 01/13/22 04:13: WBC 5.0, RBC 3.60 L, Hgb 11.9 L, Hct 35.8 L, MCV 99.4 H, MCH 33.1 H, MCHC 33.2, RDW Std Deviation 49.8 H, RDW Coeff of Yayo 13.6, Plt Count 314, MPV 8.9 01/13/22 04:13: Sodium 140, Potassium 3.9, Chloride 109 H, Carbon Dioxide 24.0, Anion Gap 7, BUN 17, Creatinine 0.63, Estim Creat Clear Calc 37.85, Est GFR (MDRD) Af Amer 117, Est GFR (MDRD) Non-Af 97, BUN/Creatinine Ratio 26.8 H, Glucose 80, Calcium 9.0 Micro: Microbiology 01/06/22 10:25 Urine, Catheterized Urine Culture - Final Escherichia coli Klebsiella oxytoca Physical Exam Const alert, oriented x3 and no apparent distress General Appearance: cooperative Resp normal respiratory effort and clear to auscultation bilaterally Cardio regular rate, regular rhythm and no gallops GI normal to inspection, nondistended, normoactive bowel sounds and soft to palpation Extremity no calf tenderness Extremity Narrative: ROBBIE hose are in place General Extremity: Negative for edema Skin General Skin Exam: no breakdown Rashes: no rashes Neuro CN's II-XII intact bilaterally and no focal motor deficits Psych cooperative and affect normal Assessment & Plan Assessment/Plan (1) Physical debility: (2) Burst fracture of lumbar vertebra: (3) Spinal epidural hematoma: (4) Central stenosis of spinal canal: (5) S/P laminectomy: (6) History of lumbar fusion: (7) Neurogenic bladder: (8) UTI (urinary tract infection), bacterial: (9) Memory difficulties: PLAN: Plan 1. Continue therapy. We discussed discharge date and have agreed on Thursday of this week. She is doing very well in therapy now. I would like to give her every opportunity to be able to urinate without requiring catheterization prior to discharge. The post void residuals have been decreasing gradually. 2. Today is day 5/7 of cefadroxil. 3. Speech therapy is to see Becky today for a cognitive assessment. Charges/Coding Visit Charges Inpatient E&M: 51396 Subs Hosp L2
[2022-01-13 19:21] VITALS: BP 131/40; PULSE 64; RESP 16; TEMP 36.6; O2SAT 98
[2022-01-13 21:20] VITALS: O2SAT 98
[2022-01-13] MEDS: oxyCODONE 5 MG Tablet PO (21:20)
[2022-01-14] MEDS: Acetaminophen 500 MG Tablet 1000 MG PO ×3 (05:36→19:36)
[2022-01-14] MEDS: Levothyroxine 50 MCG Tablet PO (05:36)
[2022-01-14] MEDS: oxyCODONE 5 MG Tablet PO ×3 (05:38→19:36)
[2022-01-14 07:46] VITALS: BP 129/69; PULSE 64; RESP 18; TEMP 36.3; O2SAT 97
[2022-01-14] MEDS: Calcium (Elemental) 500 MG Tablet PO (08:05)
[2022-01-14] MEDS: Cefadroxil 500 MG CAPSULE PO ×2 (10:10→19:37)
[2022-01-14] MEDS: Enoxaparin 30 MG/0.3 ML Syringe SC ×2 (10:10→19:38)
[2022-01-14] MEDS: Polyethylene Glycol 3350 17 GM PACKET PO (10:11)
[2022-01-14] MEDS: Cholecalciferol (VIT D3) 25 MCG TABLET (1,000 UNITS) PO (10:11)
[2022-01-14] MEDS: Senna/Docusate Sodium 1 Tablet 2 TABLET PO (10:11)
[2022-01-14 19:00] VITALS: BP 132/50; PULSE 58; RESP 16; TEMP 36.8; O2SAT 96
[2022-01-14] MEDS: Lidocaine Jelly 2% 20 ML Syringe (URO-JET) 1 APPLIC TOPICAL (20:24)
[2022-01-15] MEDS: Levothyroxine 50 MCG Tablet PO (06:36)
[2022-01-15] MEDS: Acetaminophen 500 MG Tablet 1000 MG PO ×3 (06:36→21:15)
[2022-01-15] MEDS: Enoxaparin 30 MG/0.3 ML Syringe SC ×2 (08:18→21:15)
[2022-01-15] MEDS: Polyethylene Glycol 3350 17 GM PACKET PO (08:18)
[2022-01-15] MEDS: Senna/Docusate Sodium 1 Tablet 2 TABLET PO ×2 (08:18→21:15)
[2022-01-15] MEDS: Cholecalciferol (VIT D3) 25 MCG TABLET (1,000 UNITS) PO (08:18)
[2022-01-15] MEDS: Cefadroxil 500 MG CAPSULE PO ×2 (08:19→21:15)
[2022-01-15] MEDS: Calcium (Elemental) 500 MG Tablet PO (08:19)
[2022-01-15 08:38] VITALS: BP 116/43; PULSE 63; RESP 16; TEMP 37.2; O2SAT 95
[2022-01-15] MEDS: oxyCODONE 5 MG Tablet PO (08:48)
[2022-01-15 19:11] VITALS: BP 123/53; PULSE 66; RESP 14; TEMP 36.8; O2SAT 100
[2022-01-16] MEDS: oxyCODONE 5 MG Tablet PO ×3 (02:23→21:51)
[2022-01-16] MEDS: Levothyroxine 50 MCG Tablet PO (05:23)
[2022-01-16] MEDS: Acetaminophen 500 MG Tablet 1000 MG PO ×3 (05:23→20:47)
[2022-01-16] MEDS: Senna/Docusate Sodium 1 Tablet 2 TABLET PO (08:17)
[2022-01-16] MEDS: Calcium (Elemental) 500 MG Tablet PO (08:17)
[2022-01-16] MEDS: Enoxaparin 30 MG/0.3 ML Syringe SC ×2 (08:17→20:48)
[2022-01-16] MEDS: Polyethylene Glycol 3350 17 GM PACKET PO (08:17)
[2022-01-16] MEDS: Cholecalciferol (VIT D3) 25 MCG TABLET (1,000 UNITS) PO (08:17)
[2022-01-16 08:21] VITALS: BP 131/49; PULSE 64; RESP 16; TEMP 36.6; O2SAT 100
[2022-01-16 09:05] VITALS: O2SAT 97
--- NOTE | 2022-01-16 14:30 | DCINST_ITS ---
Discharge Instructions Diet Discharge Diet: No restrictions Activity Discharge Activity: May Not Drive, May Shower and Use Walker Weight Bearing Status: Full weight bearing Dressing / Incision Call your doctor if your incision/area has: Continuous Slow Oozing, Increased Pain/ Swelling, Increased Redness and Foul Smelling Discharge Call your doctor if you observe: Fever of 101 or Higher, Shortness of breath, Fainting spells, Swelling in the ankles, Chest pain, Increased palpitations (irregular heartbeat), Calf discomfort and Uncontrolled pain Suture Line Care: Avoid Pulling/Pushing and Avoid Pinching/Bending Cleanse incision/area with: Soap & Water Additional Dressing/Incision Instructions:: You do not need to keep a dressing on the incision but, it your clothes are rubbing the incision and it is causing discomfort you could cover the incision with a dry dressing. Have Joni check the incision every day for redness and discharge and if it is getting red or has any discharge, brenda if foul smelling, call your family doctor or the surgeon. Follow Up Care Please Follow Up With: Dr. Sourav Johnson When: 01/21/22 at 0815 AM Test Results: Test results from this visit will be discussed in further detail at your follow- up appointment, if applicable. Pending Tests Upon Discharge: none Discharge Plan Admission Admit Date/Time: 01/01/22 15:15 Primary Reason for Your Visit: Debility due to Lumbar fusion and laminectomy. Attending Provider: Drea Rojas Instructions Additional Instructions / Restrictions: 1. Spinal precautions 1. No bending at the waist 2. No lifting more than 5 lbs 3. No twisting 2. The fracture of the vertebra in your back pushed bone fragments into the spinal column that compressed the spinal cord. In addition there was a large blood clot in the spinal canal and this also put pressure on the spinal cord. You had surgery to relieve the pressure but, you had some spinal cord dysfunction after surgery due to the time the cord was compressed. This is what caused the urine retention. Fortunately you are now able to urinate and the numbers are looking better and better. I am not going to send you home with a catheter. If you develop a fever, urinary urgency, chills, increased urinary frequency or pain in the pelvis call your family doctor to be see. These are signs of an infection. 3. Your incision in the back is healing very nicely and there has been no sign of infection. Keep the incision clean and dry. You do not have to keep a dressing on the incision unless it is more comfortable for you. 4. Since I am not your family doctor I am only allowed to give you enough pain medication for 1 week after discharge. If you still need pain medication after the prescription runs out call your family doctor or the surgeon 5. It has been a pleasure meeting you Becky and you have worked hard in therapy. I hope things continue to improve for you. If you have any questions after you leave rehab please do not hesitate to call me. Office: [phone] CELL: [phone] Discharge Orders/Prescriptions Prescriptions: New cholecalciferol (vitamin D3) 25 mcg (1,000 unit) Tablet 25 mcg PO DAILY Qty: 30 0RF Continued polyethylene glycol 3350 [Miralax] 17 gram Powder In Packet 17 g PO DAILY acetaminophen 500 mg Tablet 1,000 mg PO Q8 calcium carbonate 600 mg calcium (1,500 mg) Tablet 600 mg PO DAILY levothyroxine [Synthroid] 50 mcg Tablet 50 mcg PO DAILY oxycodone 5 mg Tablet 5 mg PO Q6H PRN (Reason: pain) 7 Days Qty: 28 0RF Discontinued ondansetron HCl [Zofran] 4 mg Tablet 4 mg PO Q8H PRN (Reason: nausea/vomiting ) Lovenox 30 mg/0.3 mL Solution 30 mg SUBCUT Q12H PRN Referrals / Follow Up: [facility] [Other] - 01/23/22 11:[address] Sourav Johnson-Surgeon [Other] - 01/21/22 8:15 am (Will have X-ray at 815 and see doctor at 830 ) Ayo Knight, [Non-Staff] - (pt to make appt) Disposition Disposition (needs filled in before D/C Order can be placed): Home Health Service
--- NOTE | 2022-01-16 15:37 | DS.PCM_ITS ---
Providers Date of Admission: 01/01/22 Date of Discharge: 01/17/22 Primary Care Physician: Dr. Ayo Knight Reason For Visit: Debiity due to Lumbar Laminectomy/Fusion Diagnosis Discharge Diagnosis (1) Physical debility: Status: Acute Code(s): R53.81 - Other malaise (2) Fall: Status: Acute Code(s): W19.XXXA - Unspecified fall, initial encounter (3) Burst fracture of lumbar vertebra: Status: Acute Code(s): S32.001A - Stable burst fracture of unspecified lumbar vertebra, initial encounter for closed fracture Plan: L3 with 6 mm of retropulsion causing spinal stenosis. She also had an epidural hematoma contributing to spinal stenosis. (4) Spinal epidural hematoma: Status: Acute (5) S/P laminectomy: Status: Acute Code(s): Z98.890 - Other specified postprocedural states Plan: 12/26/2021 -L2-L4 posterior spinal fusion with L2-L4 laminectomy and L2, L3 and L4 vertebral plasties. (6) History of lumbar fusion: Status: Acute Code(s): Z98.1 - Arthrodesis status (7) Urine retention: Status: Acute Code(s): R33.9 - Retention of urine, unspecified Plan: Neurogenic due to lumbar canal stenosis due to L3 burst fracture with retropulsed fragments into the spinal canal and a epidural hematoma. (8) UTI (urinary tract infection), bacterial: Status: Resolved Code(s): N39.0 - Urinary tract infection, site not specified; A49.9 - Bacterial infection, unspecified (9) Memory difficulties: Status: Chronic Code(s): R41.3 - Other amnesia Plan: recommends ST with [facility] for memory strategies. (10) Recurrent bacterial cystitis: Status: Acute Code(s): N30.90 - Cystitis, unspecified without hematuria Plan: Eric developed severe dysuria on the night prior to scheduled DC and was placed on Keflex by the night hospitalist. Since she recently had a urinary tract infection secondary to E. coli and Klebsiella oxytoca and it was treated with 7 days of cefadroxil I hesitate to send her home with another first generation cephalosporin. Levaquin 500 mg was given p.o. on the date of discharge and she was sent home with 3 doses of Levaquin 250 mg. After reviewing the culture report on Thursday I will call her and change the antibiotic or continue the Levaquin as indicated by the results of the urine culture. I spoke with Dr. Snow's office and they will call Eric once she is home and schedule an appt for about 10 days for a voiding trial. She will be sent home with a Randhawa because she refuses to self cath and she is still retaining urine and occasionally requiring intermittent catheterization. Eric is agreeable with this. Plan 1. Discharge home with home health care on 01/17/2022 for ST/OT/PT/SN. No DME needs. Has a FWW available to her at home. 2. Follow up with Dr. Knight within the next 7-10 days. 3. Follow up appt with Dr. Sourav Johnson surgeon has been scheduled for her. 4. Pt to adhere to spinal precautions of no bending, lifting > 10 lbs and no twisting. 5. Insert Randhawa catheter prior to DC. 6. Received 2 liters of IV LR prior to DC 7. Levaquin 500 mg on the day of DC and then give 3 doses of Levaquin 250 mg a nd call her on Thursday with the results of the urine culture. 8. Follow up with Dr. Snow in 10 days for a voiding trial. Medications at Discharge Home Medications acetaminophen 500 mg tablet 1,000 mg PO Q8 pain 01/01/22 calcium carbonate 600 mg calcium (1,500 mg) tablet 600 mg PO DAILY Check with primary doctor 01/01/22 levothyroxine 50 mcg tablet (Synthroid) 50 mcg PO DAILY hypothyroid 01/01/22 polyethylene glycol 3350 17 gram oral powder packet (Miralax) 17 g PO DAILY bowel mobility 01/01/22 cholecalciferol (vitamin D3) 25 mcg (1,000 unit) tablet 25 mcg PO DAILY #30 tabs 01/16/22 oxycodone 5 mg tablet 5 mg PO Q6H PRN pain 7 days #28 tabs 01/16/22 levofloxacin 250 mg tablet 250 mg PO DAILY #3 tabs 01/17/22 Hospital Course Operations - (L2-L4 posterior spinal fusion with L2-L4 laminectomy and L2, L3 and L4 vertebroplasty on 12/26/[address] Johnson. ) Procedures None and - (Weight catheter inserted on 01/17/2022 prior to discharge from rehab. Will follow up with Dr. Snow in 10 days for a voiding trial.) Summary of Care Provided Minutes Spent on Discharge: 40 Hospital Course: ERIC WRIGHT, is a 76 YO F with a PMH of hypothyroidism and a EDUCATION DIRECTOR shunt (for NPH in 2019) who presented to an outside hospital on 12/19/21 after a mechanical fall on the stairs at home. She denied hitting her head. She fell back and landed on a step which broke her fall.? She was transferred to [facility] in [place] for orthopedic evaluation of a L3 burst fracture with 6 mm of retropulsion with spinal stenosis and a probable epidural hematoma. While at [facility] she was seen in consult by Dr. Tsai from neurosurgery to determine if she could have an MRI and if the EDUCATION DIRECTOR shunt would need to be reprogrammed after the MRI.? He determined the shunt was a Certas valve and she could have an MRI and the device would not need to be reprogrammed following the MRI.? MRI of the lumbosacral spine showed moderate to severe comminuted burst fracture involving L3 with significant retropulsion, asymmetrically greater on the left, including slight extension into the left pedicle.? There was associated moderate to severe spinal stenosis with mass-effect on the thecal sac and nerve roots at L2-L4.? On 12/26 she was taken to the OR for L2-L4 posterior spinal fusion with L2-L4 laminectomy and L2, L3 and L4 vertebroplasty.? Postoperatively she was prescribed a brace when out of bed and as needed for comfort. Eric was transferred to the acute inpt unit at [facility] on 12/14/21 for 3 hours of therapy daily to restore function/independence prior to returning home.? Eric was diagnosed with urine retention soon after admission to rehab. The urine retention failed to resolve with laxatives and stool softeners to resolve the obstipation. A UA was negative for infection. She was unable to even initiate urination at the beginning and had to be straight cath'd every 6-8H. She gradually began to be able to initiate urine and the PVR's started to decrease. She developed dysuria and a UA was obtained on 01/06/2022. It showed greater than 100 WBCs per high-power field with 3+ bacteria. Urine culture grew Klebsiella oxytoca and E. coli and both were sensitive to first generation cephalosporins. She was treated with 7 days of cefadroxil and became asymptomatic. 1 night prior to discharge she once again complained of severe dysuria and also had suprapubic discomfort. She denied flank pain, nausea and vomiting. A UA was sent and once again showed greater than 100 WBCs per high- power field with 3+ bacteria. It was nitrite positive. Urine culture is pending at the time of discharge. She was given 500 mg of Levaquin p.o. prior to discharge and a prescription for Levaquin 250 mg x 3 doses. I will call her on Thursday with the results of the urine culture and change the antibiotic if needed. I spoke with Dr. Snow's office and they will call Eric to arrange an appt in 10 days for a voiding trial in Dr. Snow's office. I am going to tx with 10 days of antibiotics this time for recurrent cystitis. It is brenda important to eradicate the infection in light of the recent lumbar surgery and hardware in her back as well as the EDUCATION DIRECTOR shunt. Urine OP is > intake and this may be due to post obstructive diuresis or inaccurate I&O's. She was given 2 liters of IV fluid prior to DC on 01/17/11 and since she is still needing to be straight cath'd at least 1-2 times a day for post void residual > 200 will send her home with a Randhawa catheter. She refuses to self cath herself and would not feel comfortable having her do it. Eric has memory difficulties at baseline. This may be related to NPH in the past for which she was treated with a EDUCATION DIRECTOR shunt. The memory difficulties were exacerbated by narcotics and she had difficulty remembering how to use a FWW from 1 day to the next. The Oxycodone dose was decreased to 5 mg and the memory difficulties got somewhat better. she was seen by ST during her admission and ongoing ST was recommended post discharge to work on memory strategies. Prior to discharge she was able to a send/descend to 7 inch steps with 2 handrails. She has no HR's at home but, she can use the door frame to gain entry to the house and she has only 1 step to get in the house. She was able to ambulate up to 326 feet with a wheeled walker at mod I on level ground and up to 300 feet with a wheeled walker and standby assist on various surfaces. At the time of discharge she is mod I with eating, grooming, upper body dressing, lower body dressing, toilet transfer ad toileting. She is standby assist for bathing and tub/shower transfer. She will have [facility]HC at [facility] for PT/OT/ST/SN. Prior to DC she was instructed in Randhawa care by the nursing staff. She has an appointment with her surgeon, Dr. Sourav Johnson, on 01/21/22 at 0815 and she was instructed to call Dr. Ayo Knight's office to schedule an appt for 7 -[address] Snow's office will call Eric once she is home to schedule an appt for 10 days for voiding trial in the office. At the time of DC the urine culture is pending. Eric was discharged on Levaquin 250 mg daily and I will call her on Thursday AM to review the results of the urine culture and change the antibiotic if needed. Physical Exam Narrative Seems a little more alert today and she is smiling at me again. Still sleeping a lot. Const alert, oriented x3 and healthy appearing General Appearance: cooperative HEENT HEENT Narrative: Denies cephalgia. Mouth: dry mucous membranes Eyes PERRL, EOMs intact bilaterally, conjunctivae normal and no scleral icterus Neck no lymphadenopathy, supple, no JVD and no carotid bruits Resp normal respiratory effort, normal air movement, no use of accessory muscles and clear to auscultation bilaterally Effort and Inspection: able to speak in complete sentences and symmetric chest movement Cardio regular rate, regular rhythm, S1 normal heart sound, S2 normal heart sound, no murmurs, no rub and no gallops Cardio Narrative: No ectopy GI normal to inspection, nondistended, normoactive bowel sounds, soft to palpation, non-tender and non-distended GI Narrative: No guarding with palpation. Denies suprapubic pain today. Also denies flank pain, nausea and vomiting. Extremity no calf tenderness and no pedal edema Extremity Narrative: ROBBIE hose are in place Skin General Skin Exam: no breakdown Rashes: no rashes Wound Narrative: The Lumbar incision is intact with no dehiscence. There is no shun-incisional erythema and no DC. Neuro oriented x3, CN's II-XII intact bilaterally, moves all extremities and no focal motor deficits Neuro Narrative: she has neurogenic bladder but, she is now able to initiate urination and is requiring intermittent catheterization only 1-2 times a day. Speech: speech normal Psych cooperative, affect normal, speech normal and activity/motor behavior normal Psych Narrative: She has been anxious at times......mostly centering around the urine retention a nd the need for catheterization. She is OK with having a Randhawa catheter but, was very anxious and upset about having to self cath. she is calm at [facility] knowing that she will have a Foeky. Appearance: appropriate and well kempt Attitude: calm Activity / Motor Behavior: appropriate eye contact Weight / BMI Weight Weight: 139 lb 3.2 oz Body Mass Index (BMI) 24.8 ABG / Lab / Microbiology Data Result Diagrams: 01/13/22 04:13 01/13/22 04:13 Microbiology: Microbiology 01/06/22 10:25 Urine, Catheterized Urine Culture - Final Escherichia coli Klebsiella oxytoca D/C Instructions Discharge Diet: No restrictions Weight Bearing Status: Full weight bearing Call your doctor if your incision/area has: Continuous Slow Oozing, Increased Pain/ Swelling, Increased Redness and Foul Smelling Discharge Call your doctor if you observe: Fever of 101 or Higher, Shortness of breath, Fainting spells, Swelling in the ankles, Chest pain, Increased palpitations (i rregular heartbeat), Calf discomfort and Uncontrolled pain Suture Line Care: Avoid Pulling/Pushing and Avoid Pinching/Bending Cleanse incision/area with: Soap & Water Additional Dressing/Incision Instructions: You do not need to keep a dressing on the incision but, it your clothes are rubbing the incision and it is causing dis comfort you could cover the incision with a dry dressing. Have Joni check the incision every day for redness and discharge and if it is getting red or has any discharge, brenda if foul smelling, call your family doctor or the surgeon. Pending Tests Upon Discharge: none Please Follow Up With: Dr. Sourav Johnson When: 01/21/22 at 0815 AM Meaningful Use Info Meaningful Use Diagnoses (Choose all that apply): None applicable Discharge Plan Admission Admit Date/Time: 01/01/22 15:15 Primary Reason for Your Visit: Debility due to Lumbar fusion and laminectomy. Attending Provider: Drea Rojas Instructions Additional Instructions / Restrictions: 1. Spinal precautions 1. No bending at the waist 2. No lifting more than 5 lbs 3. No twisting 2. The fracture of the vertebra in your back pushed bone fragments into the spinal column that compressed the spinal cord. In addition there was a large blood clot in the spinal canal and this also put pressure on the spinal cord. You had surgery to relieve the pressure but, you had some spinal cord dysfunction after surgery due to the time the cord was compressed. This is what caused the urine retention. Fortunately you are now able to urinate and the numbers are looking better and better. I am not going to send you home with a catheter. If you develop a fever, urinary urgency, chills, increased urinary frequency or pain in the pelvis call your family doctor to be see. These are signs of an infection. 3. Your incision in the back is healing very nicely and there has been no sign of infection. Keep the incision clean and dry. You do not have to keep a dressing on the incision unless it is more comfortable for you. 4. Since I am not your family doctor I am only allowed to give you enough pain medication for 1 week after discharge. If you still need pain medication after the prescription runs out call your family doctor or the surgeon 5. It has been a pleasure meeting you Eric and you have worked hard in therapy. I hope things continue to improve for you. If you have any questions after you leave rehab please do not hesitate to call ajay lu Office: [phone] CELL: [phone] Discharge Orders/Prescriptions Prescriptions: New cholecalciferol (vitamin D3) 25 mcg (1,000 unit) Tablet 25 mcg PO DAILY Qty: 30 0RF levofloxacin 250 mg tablet 250 mg PO DAILY Qty: 3 0RF Continued polyethylene glycol 3350 [Miralax] 17 gram Powder In Packet 17 g PO DAILY acetaminophen 500 mg Tablet 1,000 mg PO Q8 calcium carbonate 600 mg calcium (1,500 mg) Tablet 600 mg PO DAILY levothyroxine [Synthroid] 50 mcg Tablet 50 mcg PO DAILY oxycodone 5 mg Tablet 5 mg PO Q6H PRN (Reason: pain) 7 Days Qty: 28 0RF Discontinued ondansetron HCl [Zofran] 4 mg Tablet 4 mg PO Q8H PRN (Reason: nausea/vomiting ) Lovenox 30 mg/0.3 mL Solution 30 mg SUBCUT Q12H PRN Referrals / Follow Up: [facility] [Other] - 01/23/22 11:[address] Sourav Johnson-Surgeon [Other] - 01/21/22 8:15 am (Will have X-ray at 815 and see doctor at 830 ) Eugene,Ayo, DO [Non-Staff] - 01/23/22 1:00 pm (Pt can reschedule appt but needs to sign [facility] orders so appt was made) Disposition Disposition (needs filled in before D/C Order can be placed): Home Health Service
--- NOTE | 2022-01-16 18:35 | NURSING ---
pt voided and bladder scanned for 270, pt frustrated and did not want to be cathed at this time.
[2022-01-16 19:39] VITALS: BP 119/45; PULSE 56; RESP 14; TEMP 37; O2SAT 98
--- NOTE | 2022-01-17 01:00 | NURSING ---
PT WITHOUT RELIEF FROM BLADDER PAIN. VOIDS SMALL AMT-NOTED TO BE CLOUDY WITH LARGE AMT WHITE SEDIMENT. BLADDER AREA IS VERY TENDER TO PALPATION.
--- NOTE | 2022-01-17 01:19 | PCM.HOSP.N ---
Hospitalist Note Called because patient was having bladder tenderness frequency and dysuria. Previous culture from the end of December showed Klebsiella and E. coli. She was treated at that time. We will start Pyridium, obtain UA and culture and start Keflex 500 mg p.o. 4 times daily after cultures obtained.
--- NOTE | 2022-01-17 01:20 | NURSING ---
DR SEFERINO THOMAS NOTIFIED OF PT'S BLADDER PAIN DESPITE PAIN MEDS, CLOUDY URINE WITH WHITE SEDIMENT. ORDERS GIVEN.
--- NOTE | 2022-01-17 01:35 | NURSING ---
PT INFORMED THAT A URINE SPECIMEN TO BE OBTAINED TO CHECK FOR UTI. SPECIMEN OBTAINED USING STRAIGHT CATH WITH STERILE TECHNIQUE. URINE IS MURKY YELLOW AND WITH SLIGHT ODOR. PT TOLERATES PROCEDURE WELL.
[2022-01-17 01:50] LABS: Mucous, Urine 0 SEEN /hpf (<or=2+); Squamous Epithelial Cells - UA 0 SEEN /hpf (5-10)
[2022-01-17 01:51] LABS: Color, Urine Yellow (Yellow); Glucose, Dipstick Normal (Normal); Ketone-Dipstick Negative (Negative); Leukocyte Esterase-Dipstick 500 /ul (Negative); Nitrite-Dipstick Positive (Negative); Occult Blood-Urine 50 /ul (Negative); Protein-Dipstick 100 mg/dl (Negative); Specific Gravity, Urine 1.015 (1.002-1.030); Urine Bilirubin Dipstick Negative (Negative); Urine Clarity Turbid (Clear); Urine Urobilinogen Normal (Normal)
[2022-01-17] MEDS: Phenazopyridine 95 MG Tablet 190 MG PO ×3 (01:59→14:06)
[2022-01-17] MEDS: Cephalexin 500 MG Capsule PO ×3 (01:59→11:25)
[2022-01-17 02:05] LABS: Bacteria 3+ /hpf (None Seen); Red Blood Cells-Urine 10-25 SEEN /hpf (0-5)
[2022-01-17 02:06] LABS: White Blood Cells >100 SEEN /hpf (0-5)
[2022-01-17] MEDS: Acetaminophen 500 MG Tablet 1000 MG PO ×2 (06:20→14:06)
[2022-01-17] MEDS: Levothyroxine 50 MCG Tablet PO (06:20)
[2022-01-17] MEDS: Calcium (Elemental) 500 MG Tablet PO (08:13)
[2022-01-17] MEDS: Enoxaparin 30 MG/0.3 ML Syringe SC (08:13)
[2022-01-17] MEDS: Polyethylene Glycol 3350 17 GM PACKET PO (08:13)
[2022-01-17] MEDS: Cholecalciferol (VIT D3) 25 MCG TABLET (1,000 UNITS) PO (08:13)
[2022-01-17] MEDS: oxyCODONE 5 MG Tablet PO (08:17)
[2022-01-17 08:21] VITALS: BP 127/67; PULSE 86; RESP 16; TEMP 36.8; O2SAT 92
[2022-01-17] MEDS: Lactated Ringers 500 ML 999 ML IV (11:19)
--- NOTE | 2022-01-17 11:23 | CASEMGMT ---
Social Work Received call from that pt has new UTI and placing gallardo cath. SW updated [facility] to have supplies ready for pt. Yvonne Wyatt, DRILL RUNNER HELPER FIELD ACCOUNT MANAGER
[2022-01-17] MEDS: Lactated Ringers 1,000 ML 200 ML IV (12:00)
[2022-01-17] MEDS: levoFLOXacin 500 MG Tablet PO (14:07)
[2022-01-17 17:05] VITALS: BP 127/67; PULSE 86; RESP 16; TEMP 36.8; O2SAT 92
--- NOTE | 2022-01-17 17:05 | NURSING ---
Discharge to home with , patient done with her IV fluids and demonstrated gallardo catheter care and use. Patient aware that urology will get a hold of her to schedule a follow up appointment.
== END 2022-01-17 17:05 | disposition home health service (06) | DRG 560 ==
PROVIDERS: Internal Medicine; Admitting Provider Internal Medicine; Visit Provider Internal Medicine
DX: S32.031D Stable burst fracture of third lumbar vertebra, subsequent encounter for fracture with routine healing (principal); N30.00 Acute cystitis without hematuria; B96.1 Klebsiella pneumoniae [K. pneumoniae] as the cause of diseases classified elsewhere; E03.9 Hypothyroidism, unspecified; M48.061 Spinal stenosis, lumbar region without neurogenic claudication; W10.9XXD Fall (on) (from) unspecified stairs and steps, subsequent encounter; S06.4X0D Epidural hemorrhage without loss of consciousness, subsequent encounter; B96.20 Unspecified Escherichia coli [E. coli] as the cause of diseases classified elsewhere; Z79.01 Long term (current) use of anticoagulants; Z98.1 Arthrodesis status; N31.9 Neuromuscular dysfunction of bladder, unspecified; B96.89 Other specified bacterial agents as the cause of diseases classified elsewhere; R33.9 Retention of urine, unspecified; Z98.2 Presence of cerebrospinal fluid drainage device; Z79.899 Other long term (current) drug therapy; Z79.890 Hormone replacement therapy
CPT/HCPCS: 36415; 74018; 80048; 80053; 81001; 82306; 83735; 84100; 84443; 85025; 85027; 87077; 87086; 87088; 87186; 92507; 92523; 97110; 97116; 97129; 97130; 97162; 97167; 97530; 97535; 97802; J7120